=== PATIENT | female | born 1985 | race Caucasian/White ===

== ENCOUNTER 2016-11-01 11:33 | Emergency (ER) | payer BC, OTHER ==
[~2016-11-01] VITALS: Ht 167.6 cm; Wt 50.4 kg
--- NOTE | ~2016-11-01 | EKG ---
[place] [address] [facility] [place] [address] ELECTROCARDIOGRAM REPORT Name: CECY LEÓN Room #: DEP Vik#: [id number] Admission: 11/01/16 Attend Phys: Discharge: 11/01/16 Date of : 83 Report #: [id number] THIS REPORT FOR: //name// [facility] ED Test Date: 2016-11-01 Test Time: 11:54:52 Pat Name: CECY LEÓN Department: Room: Gender: F Benefit Authorizer: YOSEF Rick : 1985 Requested By: Randi Padilla Order Number: [id number] MD: Gerald Kapoor Measurements Intervals [place] Rate: 82 P: 78 KS: 136 QRS: 69 QRSD: 83 T: 31 QT: 378 QTc: 442 Interpretive Statements Sinus rhythm Minimal ST depression, inferior leads No previous ECG available for comparison Electronically Signed On 11-02-2016 7:52:30 CDT by Gerald Kapoor [email or web address] <ELECTRONICALLY SIGNED> By: Gerald Kapoor MD, [facility] 11/02/16 [id number] Gerald Kapoor MD, FACC /EPI
[2016-11-01 12:23] LABS: ABSOLUTE NEUTROPHILS 4.5 thou/uL (1.4-8.2); BASOPHILS 0.8 % (0.0-2.0); EOSINOPHILS 1.8 % (0.0-3.0); HEMATOCRIT 44.2 % (37.0-47.0); HEMOGLOBIN 15.1 gm/dL (12.0-15.0); LYMPHOCYTES 28.2 % (24.0-44.0); MCH 29.6 pg (26.0-34.0); MCHC 34.1 g/dL (28.0-37.0); MCV 86.8 fL (80.0-100.0); MONOCYTES 6.1 % (1.0-8.0); PLATELET COUNT 191 thou/uL (150-400); POLYS 63.1 % (36.0-66.0); RBC 5.09 mil/uL (4.20-5.00); RDW 12.5 % (10.5-14.5); WBC 7.1 thou/uL (4.0-11.0)
[2016-11-01 12:24] LABS: MANUAL DIFF NO
[2016-11-01 12:26] LABS: ANION GAP 6 mmol/L (7-16); BUN 8 mg/dL (7-18); CALCIUM 8.8 mg/dL (8.5-10.1); CHLORIDE 104 mmol/L (98-107); CO2 28 mmol/L (21-32); CREATININE 0.8 mg/dL (0.6-1.0); GLUCOSE 101 mg/dL (74-106); POTASSIUM 3.5 mmol/L (3.5-5.1); SODIUM 138 mmol/L (136-145)
[2016-11-01 12:34] LABS: TROPONIN-I < 0.04 ng/mL (<0.04-0.07)
[2016-11-01 13:31] LABS: ABG SAMPLE TYPE ARTERIAL; BE(vivo) -0.7 mmol/L (-2 to +3); HCO3 23.1 mmol/L (22.0-26.0); LACTATE 0.93 mmol/L (0.5-2.0); O2(CT) 20.4 mL/dL (15.0-23.0); O2Hb 96.9 % (92.0-98.0); PCO2 35.6 mmHg (35.0-45.0); PO2 98.7 mmHg (80.0-100.0); STICK SITE R.RADIAL; sO2 97.7 % (92.0-98.0); tCO2 24.2 mmol/L (24.0-30.0)
[2016-11-01 15:50] VITALS: BP 108/80
== END 2016-11-01 15:52 | disposition home or self-care (01) ==
LOC: ER 11:33
PROVIDERS: Emergency Medicine
DX: I95.1 Orthostatic hypotension (principal); F10.99 Alcohol use, unspecified with unspecified alcohol-induced disorder; Z90.49 Acquired absence of other specified parts of digestive tract; Z88.0 Allergy status to penicillin

== ENCOUNTER → 2018-02-10 | Outpatient (CLI) | payer BC, OTHER | LOC: ULTRA 12:09 | DX: N63.10 Unspecified lump in the right breast, unspecified quadrant (principal) ==